=== PATIENT | female | born 1990 | race Two or more races ===

== ENCOUNTER 2023-04-25 18:15 | Emergency (ER) | payer MEDICAID ==
[~2023-04-25] VITALS: Ht 152.4 cm; Wt 70.4 kg
[2023-04-25] MEDS ORDERED: SODIUM CHLORIDE 0.9% 1,000 ML IVB ONE (19:00)
[2023-04-25 19:01] LABS: Basophils # (auto) 0 10 ^3/uL (0-0.2); Basophils % (auto) 0.5 % (0.0-2.0); Eosinophils # (auto) 0.4 10 ^3/uL (0-0.8); Hematocrit 39.6 % (36.0-46.0); Hemoglobin 13.2 g/dL (12.2-16.2); Lymphocytes # (auto) 4.3 10 ^3/uL (0.4-5.4); Lymphocytes % (auto) 45.6 % (10.0-50.0); Mean Corpuscular Hemoglobin 29.9 pg (28.0-32.0); Mean Corpuscular Hgb Conc. 33.4 g/dL (32.0-36.0); Mean Corpuscular Volume 89.5 fL (80.0-100.0); Monocytes # (auto) 0.9 10 ^3/uL (0-1.3); Monocytes % (auto) 9.3 % (0.0-12.0); Neutrophils # (auto) 3.8 10 ^3/uL (1.6-8.6); Neutrophils % (auto) 40.6 % (37.0-80.0); Nucleated Red Blood Cells % 0.2 %; Red Blood Cells 4.43 10^6/uL (4.0-5.20); Red Cell Distribution Width 13.4 % (11.8-14.3); White Blood Cell 9.4 10^3/uL (4.4-10.8)
[2023-04-25 19:23] LABS: Alanine Aminotransferase 34 U/L (7-40); Albumin 4.9 g/dL (3.2-4.8); Alkaline Phosphatase 79 U/L (46-116); Anion Gap 8 (5-15); Aspartate Aminotransferase 21 U/L (13-40); BUN/Creatinine Ratio 12.7 (10.0-20.0); Bilirubin, Total 0.4 mg/dL (0.2-1.0); Blood Urea Nitrogen 9 mg/dL (9-23); Calcium 10.2 mg/dL (8.5-10.1); Carbon Dioxide 26 mmol/L (20-30); Chloride 105 mmol/L (98-107); Glucose 87 mg/dL (74-106); Potassium 4.4 mmol/L (3.5-5.1); Sodium 139 mmol/L (136-145); Total Protein 7.8 g/dL (5.7-8.2)
[2023-04-25 19:56] LABS: INR 1.01 (0.9-1.15); Partial Thromboplastin Time 27.1 SEC (24.5-34.5); Prothrombin Time 10.6 sec (9.3-11.8)
[2023-04-25 20:50] LABS: Urine Bacteria FEW /hpf (None Seen); Urine Blood Negative /uL (Negative); Urine Clarity Clear (Clear); Urine Color Colorless (Yellow); Urine Protein, UAD Negative (Negative); Urine Specific Gravity 1.011 (1.001-1.035); Urine Urobilinogen Normal (Negative); Urine WBC 11 /hpf (0 - 5); Urine pH 5.5 (5.0-8.0)
[2023-04-25] MEDS ORDERED: TRAM50TA2 PO (20:55)
[2023-04-25] MEDS ORDERED: CIPR-173 PO (20:55)
[2023-04-25] MEDS ORDERED: MORPHINE SULFATE 4 MG/ML SYR/VIAL IV ONE (21:00)
[2023-04-25] MEDS ORDERED: ONDANSETRON HCL 4 MG/2 ML VIAL IV ONE (21:00)
[2023-04-25 21:14] VITALS: BP 129/83; PULSE 87; RESP 16; TEMP 97.4; O2SAT 98
== END 2023-04-25 21:45 | disposition home or self-care (01) ==
LOC: ER 18:15
DX: N39.0 Urinary tract infection, site not specified (principal); R10.31 Right lower quadrant pain; R19.7 Diarrhea, unspecified; Z98.890 Other specified postprocedural states; Z79.899 Other long term (current) drug therapy
CPT/HCPCS: 36415; 74176; 80053; 81001; 83690; 85025; 85610; 85730; 96361; 96374; 96375; 99285; J2270; J2405; J7030

== ENCOUNTER 2024-11-23 02:27 | Emergency (ER) | payer MEDICAID ==
[~2024-11-23] VITALS: Ht 152.4 cm; Wt 72.7 kg
[~2024-11-23 02:27] MED LIST: CIPR-173 PO; TRAM50TA2 PO
[2024-11-23 02:35] VITALS: BP 125/75; PULSE 102; RESP 18; TEMP 98.3; O2SAT 98
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
--- NOTE | 2024-11-23 03:44 | DVH ---
CHEST RADIOGRAPH Indication: SOB Technique: Single frontal view of the chest was obtained COMPARISON: None FINDINGS: Lines and Tubes: None Lungs: Clear Pleura: No effusion. No pneumothorax. Cardiomediastinal contours: Unremarkable Bones: Unremarkable IMPRESSION: 1. No acute disease.
== END 2024-11-23 04:48 | disposition home or self-care (01) ==
LOC: EDBD 02:27 → ER 02:27
DX: F43.0 Acute stress reaction (principal); Z98.51 Tubal ligation status
CPT/HCPCS: 71045